=== PATIENT | male | born 1940 | race Caucasian/White ===

== ENCOUNTER 2020-02-12 19:04 | Emergency (ER) | payer MEDICARE ==
[2020-02-12 19:11] VITALS: BP 131/83; PULSE 65; RESP 18; TEMP 97.9
[2020-02-12] MEDS ORDERED: DIPH,PERTUS(ACELL)TETVAC-LF 0.5 ML VIAL IM ONE (19:24)
[2020-02-12] MEDS ORDERED: LIDOCAINE/EPINEPHR/TETRACAINE 5 ML BOTTLE TOPICAL ONE (19:24)
--- NOTE | 2020-02-12 19:38 | ED ---
Fall HPI - General Chief Complaint: Fall Stated Complaint: Fall, head lac Time Seen by Provider: 02/12/20 19:08 Source: patient Mode of arrival: EMS - History of Present Illness Initial Comments: 80-year-old male patient presents to the emergency department today for evaluation after experiencing a fall. Patient states that he was unable when he tripped and fell on his right side hitting his head. He did sustain a laceration. There were physicians and a nurse present on board who report that patient did have loss of consciousness for a few seconds. Patient denies any current headache, blurred vision, or double vision. Denies any nausea or vomiting. He is reporting mild right upper arm pain but denies any difficulty with range of motion or bony tenderness. He denies any neck or back pain. Patient denies any chest pain, shortness of breath, dizziness, weakness, abdominal pain, or difficulties with bowel movements or urination. Patient believes his last tetanus vaccine was administered 5-10 years ago. - Related Data Allergies Allergy/AdvReac Type Severity Reaction Status Date / Time No Known Allergies Allergy Verified 02/12/20 19:11 Review of Systems ROS Statement: Those systems with pertinent positive or pertinent negative responses have been documented in the HPI. ROS Other: All systems not noted in ROS Statement are negative. Past Medical History Past Medical History: COPD, Hypertension History of Any Multi-Drug Resistant Organisms: None Reported Past Surgical History: Hernia Repair, Tonsillectomy Past Psychological History: No Psychological Hx Reported Smoking Status: Never smoker Past Alcohol Use History: Occasional Past Drug Use History: None Reported General Exam Limitations: no limitations General appearance: alert, in no apparent distress, other (This is a well-de veloped, well-nourished adult male patient in no acute distress. Vital signs upon presentation are temperature 97.9F, pulse 65, respirations 18, blood pressure 131/83, pulse ox 97% on room air.) Head exam: Present: other (There is a 3 cm laceration noted to the right parietal scalp. No active bleeding noted. No bony step-off or deformity noted with palpation around the site.) Eye exam: Present: normal appearance, PERRL, EOMI. Absent: scleral icterus, conjunctival injection, periorbital swelling ENT exam: Present: normal exam, normal oropharynx, mucous membranes moist, TM's normal bilaterally Neck exam: Present: normal inspection, other (No tenderness, bony step-off, or deformity noted to firm midline palpation of the posterior cervical spine.). Absent: tenderness, meningismus, full ROM (C-collar in place), lymphadenopathy Respiratory exam: Present: normal lung sounds bilaterally. Absent: respiratory distress, wheezes, rales, rhonchi, stridor Cardiovascular Exam: Present: regular rate, normal rhythm, normal heart sounds. Absent: systolic murmur, diastolic murmur, rubs, gallop, clicks GI/Abdominal exam: Present: soft, normal bowel sounds. Absent: distended, tenderness, guarding, rebound, rigid Extremities exam: Present: normal inspection, full ROM, normal capillary refill, other (There is no instability or tenderness noted to firm palpation of bilateral hips and pelvis. There is mild abrasion and ecchymosis noted to the right dillard. Skin is otherwise pink, warm, dry. Cap refills less than 3 seconds. Pedal pulses 2+ and equal bilaterally.). Absent: tenderness, pedal edema, joint swelling, calf tenderness Neurological exam: Present: alert, oriented X3, CN II-XII intact Expanded Patient oriented to: Present: person, place, time Speech: Present: fluid speech Cranial nerves: EOM's Intact: Normal, Nystagmus: Normal Motor strength exam: RUE: 5, LUE: 5, RLE: 5, LLE: 5 Eye Response: (4) open spontaneously Motor Response: (6) obeys commands Verbal Response: (5) oriented Lakisha Total: 15 Psychiatric exam: Present: normal affect, normal mood Skin exam: Present: warm, dry, intact, normal color. Absent: rash Course Vital Signs 02/12/20 19:06 Temperature 97.9 F Pulse Rate 65 Respiratory 18 Rate Blood Pressure 131/83 O2 Sat by Pulse 97 Oximetry Procedures - Laceration Laceration #1 Consent Obtained: verbal consent Indication: laceration Site: scalp (Right parietal) Size (cm): 3 Description: linear Depth: simple, single layer Anesthetic Used: lidocaine 1% (Xap solution) Amount (mls): 5 Pre-repair: irrigated extensively Type of Sutures: other ([place]) Number of Sutures: 4 Patient Tolerated Procedure: well, no complications Medical Decision Making - Medical Decision Making 80-year-old male patient presented to the emergency department today for evaluation after having a fall with head injury. Patient does report loss of consciousness. Physical examination did reveal 3 cm laceration to the right parietal scalp. He is neurologically intact with no focal deficits. Denied headache, nausea, or visual disturbance. CT brain and C-spine was obtained and was negative. I did repair the laceration using bibi. He is educated regarding wound care, staple removal, and signs or symptoms of worsening head injury. He is instructed to follow-up with his primary care physician for recheck in 1-2 days. Return parameters were discussed in detail. He verbalizes understanding and agrees with this plan - Radiology Data Radiology results: report reviewed, image reviewed CT brain and C-spine without contrast was obtained. Report was reviewed in its entirety. Impression by Dr. Santos shows spondylosis in the lower cervical spine. No fracture. Cerebral atrophy. No acute intracranial abnormality. Chronic small vessel ischemia. Disposition Clinical Impression: Head injury, Scalp laceration, Contusion of right arm Disposition: HOME SELF-CARE Condition: Good Instructions (If sedation given, give patient instructions): Laceration (ED), Head Injury (ED), Staple Care (ED), Fall Prevention (ED) Additional Instructions: Keep wound clean and dry. Cleanse twice daily with warm water and antibacterial soap. He may shower as usual. Do not submerge her head in any water, like with swimming. Avoid direct sunlight exposure to the area. Return in 7 days to have bibi removed. Follow-up with your primary care physician for recheck in 1-2 days. Return to the emergency department immediately for any new, worsening, or concerning symptoms. Is patient prescribed a controlled substance at d/c from ED?: No Referrals: Jared Gramajo MD [Primary Care Provider] - 1-2 days Time of Disposition: 20:26
--- NOTE | 2020-02-12 20:03 | CT ---
EXAMINATION TYPE: CT brain susy nash DATE OF EXAM: 02/12/2020 COMPARISON: None HISTORY: fall, head lac to right side of head CT DLP: 1420.4 mGycm Automated exposure control for dose reduction was used. There is cerebral cortical atrophy. There is no mass effect nor midline shift. There is no sign of in tracranial hemorrhage. 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 Cervical vertebra have normal alignment. There is degenerative disc space narrowing at C5-6 and C6-7 with spurring of the endplates. There is multilevel cervical hypertrophic facet arthropathy. The skul l base is intact. There is normal aeration of the temporal bones. IMPRESSION: Spondylosis in the lower cervical spine. No fracture. Cerebral atrophy. No acute intracranial abnormality. Chronic small vessel ischemia.
== END 2020-02-12 20:34 | disposition home or self-care (01) ==
LOC: EC 19:04
DX: S01.01XA Laceration without foreign body of scalp, initial encounter (principal); S40.021A Contusion of right upper arm, initial encounter; S80.11XA Contusion of right lower leg, initial encounter; Z23 Encounter for immunization; W01.198A Fall on same level from slipping, tripping and stumbling with subsequent striking against other object, initial encounter
CPT/HCPCS: 12002; 70450; 72125; 90471; 90715; 99283

== ENCOUNTER → 2024-10-08 | Outpatient (CLI) | payer MEDICARE, OTHER ==
--- NOTE | 2024-10-08 17:22 | XR ---
EXAMINATION TYPE: XR chest 2V DATE OF EXAM: 10/08/2024 5:18 PM COMPARISON: None. CLINICAL INDICATION: Male, 84 years old with history of R05.8 OTHER SPECIFIED COUGH x2 weeks TECHNIQUE: XR chest 2V view(s) obtained. FINDINGS: The heart size is normal. Aortic arch is on the left. The pulmonary vasculature is normal. The lungs are clear. IMPRESSION: 1. No acute pulmonary process. [facility], , 10/08/2024 5:19 PM
== END | disposition home or self-care (01) ==
LOC: RADXRMAIN 17:03
DX: R05.8 Other specified cough (principal)
CPT/HCPCS: 71046

== ENCOUNTER → 2024-12-15 | Outpatient (CLI) | payer MEDICARE, OTHER ==
--- NOTE | 2024-12-15 09:00 | US ---
EXAMINATION TYPE: US kidneys/renal and bladder DATE OF EXAM: 12/15/2024 COMPARISON: NONE CLINICAL INDICATION: Male, 84 years old with history of N18.31 CHRONIC KIDNEY DISEASE, STAGE 3A; CKD TECHNIQUE: Grayscale imaging of the bilateral kidneys and urinary bladder: FINDINGS: EXAM MEASUREMENTS: Right Kidney: 9.8 x 4.8 x 4.4 cm Left Kidney: 10.1 x 4.9 x 3.5 cm Right Kidney: no evidence of hydronephrosis Left Kidney: no evidence of hydronephrosis Bladder: not fully distended, appears wnl Bilateral Jets seen: no There is no evidence for hydronephrosis at this point in time. No nephrolithiasis is seen. No hernán s are identified. Corticomedullary differentiation is maintained bilaterally. No significant cortical thinning. The urinary bladder is underdistended but anechoic. The ureteral jets are not identified. IMPRESSION: No hydronephrosis or nephrolithiasis. [facility], , 12/15/2024 8:57 AM
== END | disposition home or self-care (01) ==
LOC: RADUSWWP 08:20
PROVIDERS: ATTEND Family Medicine
DX: N18.31 Chronic kidney disease, stage 3a (principal)
CPT/HCPCS: 76770